=== PATIENT | female | born 1985 | race Caucasian/White ===

== ENCOUNTER → 2016-11-21 | Outpatient (CLI) | payer MEDICAID | LOC: HPND 09:30 | DX: O34.02 Maternal care for unspecified congenital malformation of uterus, second trimester (principal); Z3A.18 18 weeks gestation of pregnancy | CPT/HCPCS: 76811 ==

== ENCOUNTER → 2016-12-19 | Outpatient (CLI) | payer MEDICAID | LOC: HPND 11:07 | DX: O34.02 Maternal care for unspecified congenital malformation of uterus, second trimester (principal) | CPT/HCPCS: 76816; 76817 ==